=== PATIENT | male | born 1955 | race Caucasian/White ===

== ENCOUNTER 2019-07-18 13:44 | Inpatient (IN) | payer OTHER ==
[~2019-07-18] VITALS: Ht 165.1 cm; Wt 86.5 kg
[2019-07-18] MEDS ORDERED: ONDANSETRON HCL 4 MG/2 ML VIAL IV ONE (14:00)
[2019-07-18] MEDS ORDERED: ASPirin 325 MG TAB PO ONE (14:00)
[2019-07-18] MEDS ORDERED: MORPHINE SULFATE 4 MG/ML SYR/VIAL IV ONE (14:00)
[2019-07-18] MEDS ORDERED: HEPARIN SODIUM (PORCINE) 5000 UNITS/ML 1ML VIAL IV ONE ×2 (14:00)
[2019-07-18 14:03] LABS: Basophils # (auto) 0.1 uL; Basophils % (auto) 0.5 % (0.0-2.0); Eosinophils # (auto) 0.1 uL; Eosinophils % (auto) 0.6 % (0.0-7.0); Hematocrit 48.5 % (41.0-53.0); Hemoglobin 16.3 g/dL (13.5-17.5); Lymphocytes # (auto) 1.8 uL; Mean Corpuscular Hemoglobin 32.4 pg (28.0-32.0); Mean Corpuscular Hgb Conc. 33.7 g/dL (32.0-36.0); Mean Corpuscular Volume 96.2 fL (80.0-100.0); Monocytes # (auto) 0.9 uL; Monocytes % (auto) 5.8 % (0.0-12.0); Neutrophils # (auto) 13.1 uL; Neutrophils % (auto) 82.1 % (37.0-80.0); Platelet Count (auto) 245 10^3/uL (140-450); Red Blood Cells 5.04 10^6/uL (4.5-5.90); Red Cell Distribution Width 13.5 % (11.8-14.3)
[2019-07-18] MEDS: SODIUM CHLOR 0.9% PF (SALINE LOCK) 10ML VIAL/SYR IV SCH ×2 (14:04→21:12)
[2019-07-18] MEDS ORDERED: ATROPINE SULFATE 0.4 MG/1 ML VIAL ONE (14:12)
[2019-07-18] MEDS ORDERED: ANGIOMAX 250 MG VIAL IV ONE (14:12)
[2019-07-18] MEDS ORDERED: EPINEPHrine HCL 1 MG/1 ML AMP ONE (14:12)
[2019-07-18] MEDS ORDERED: fentaNYL CITRATE 100 MCG/2 ML VL ONE (14:13)
[2019-07-18] MEDS ORDERED: NOREPINEPHRINE 8 MG/250ML KIT 0 ML IV ONE (14:13)
[2019-07-18] MEDS ORDERED: IODIXANOL 320MG/ML 100ML BTL IV ONE (14:13)
[2019-07-18] MEDS ORDERED: NITROGLYCERIN 50MG/250ML 0 ML IV ONE (14:13)
[2019-07-18] MEDS ORDERED: LIDOCAINE 2%HCL (LOCAL ANESTH.) INJ 20ML MDV ONE (14:13)
[2019-07-18] MEDS ORDERED: SODIUM CHL 0.9% 50 ML ONE (14:13)
[2019-07-18] MEDS ORDERED: MIDAZOLAM HCL 1MG/1ML-2 ML VIAL ONE (14:13)
[2019-07-18] MEDS ORDERED: VERAPAMIL 2.5MG/ML INJ 2ML VIAL IV ONE (14:14)
[2019-07-18] MEDS ORDERED: NTG 0.1MG/HR TOPICAL PATCH TD ONE (14:15)
[2019-07-18 14:21] LABS: Partial Thromboplastin Time 25.1 sec (23.64-32.05)
[2019-07-18 14:24] LABS: Anion Gap 6 (5-15); Blood Urea Nitrogen 14 mg/dL (7-18); Calcium 8.9 mg/dL (8.5-10.1); Carbon Dioxide 25 mmol/L (21-32); Chloride 112 mmol/L (98-107); Glucose 136 mg/dL (74-106); Potassium 3.6 mmol/L (3.5-5.1); Sodium 143 mmol/L (136-145)
[2019-07-18 14:31] LABS: Alanine Aminotransferase 41 U/L (16-61); Alkaline Phosphatase 90 U/L (45-117); Aspartate Aminotransferase 30 U/L (15-37); BUN/Creatinine Ratio 14.3; Bilirubin, Total 0.3 mg/dL (0.2-1.0); GFR African American 100 mL/min; GFR Non-African American 82 mL/min; Total Protein 7.9 g/dL (6.4-8.2)
[2019-07-18] MEDS ORDERED: TICAGRELOR 90 MG TAB ONE (15:06)
[2019-07-18] MEDS ORDERED: MORPHINE SULF INJ 2 MG/ML SYRINGE 1ML IV PRN (15:30)
[2019-07-18] MEDS ORDERED: NITROGLYCERIN 0.4 MG SL TAB SL PRN (15:30)
[2019-07-18 16:15] VITALS: BP 140/85
--- NOTE | 2019-07-18 16:15 | NUR ---
Patient in room 264 from [facility] [employer]. Patient on the monitor. Patient A&Ox4. Patient on 2L NC saturation 98%. IV left and right AC 18G both saline locked, patent, clean, dry, and intact. Patient denies any chest pain at this time. Left wrist Vasc band inflated, will remove per protocol. No Bleeding noted from the site. Bed locked and in the lowest position, side rails up x2, call light with in reach. Will continue to monitor.
[2019-07-18] MEDS ORDERED: FENO1TAB42 PO (18:01)
[2019-07-18] MEDS ORDERED: VENL37.588 PO (18:02)
[2019-07-18] MEDS ORDERED: TAMS0.4C36 PO (18:03)
[2019-07-18] MEDS ORDERED: LOSA-39 PO (18:08)
[2019-07-18] MEDS ORDERED: AMLO5TAB15 PO (18:08)
[2019-07-18] MEDS ORDERED: LOVA20TA4 PO (18:08)
[2019-07-18] MEDS ORDERED: TRAM50TA2 PO (18:08)
[2019-07-18] MEDS: LOSARTAN POTASSIUM 50 MG TAB PO SCH (18:15)
--- NOTE | 2019-07-18 18:30 | NUR ---
End of shift note: Patient sitting up in bed eating dinner independently. Patient on the monitor. Patient A&Ox4. Patient on 2L NC saturation 99%. IV left and right AC 18G both saline locked, patent, clean, dry, and intact. No S/S of pain/SOB or distress at this time. Vasc band has been removed. Left wrist insertion site dressing clean, dry, and intact no signs of bleeding at this time. Bed locked and in the lowest position, side rails up x2, call light with in reach. Report to be given to material handler 1st shift RN. Will continue to monitor.
[2019-07-18 20:00] VITALS: BP 129/78
--- NOTE | 2019-07-18 20:00 | NUR ---
SHIFT OPENING NOTE RECEIVED PATIENT AWAKE, ALERT AND ORIENTED X4. NO SOB, DISTRESS OR PAIN NOTED. ON 2L N/C. LEFT WRIST DRESSING IS CLEAN, DRY AND INTACT. STRONG PULES, NO HEMATOMA OR ECCHYMOSIS NOTED. PHYSICAL ASSESSMENT COMPLETED, SEE INTERVENTIONS. INSTRUCTED ON POC AND TO CALL FOR ASSIST NEEDED. BED IS IN THE LOWEST POSITION WITH SIDE RAILS UP X2, CALL LIGHT IS WITHIN REACH.
[2019-07-18] MEDS: ATORVASTATIN 20 MG TAB PO SCH (21:12)
[2019-07-18] MEDS: METOPROLOL TARTRATE 50 MG TAB PO SCH (21:13)
[2019-07-19] VITALS (7 sets, daily range): BP systolic 118–150; BP diastolic 66–93
[2019-07-19] MEDS ORDERED: CLOPIDOGREL 300 MG TAB PO ONE (02:00)
[2019-07-19] MEDS: SODIUM CHLOR 0.9% PF (SALINE LOCK) 10ML VIAL/SYR IV SCH ×3 (05:07→22:00)
--- NOTE | 2019-07-19 07:00 | NUR ---
END OF SHIFT REPORT GIVEN AND CARE ENDORSED TO AMELIA SMITH
--- NOTE | 2019-07-19 08:00 | NUR ---
Opening shift note: Assumed care of Patient. Patient on the monitor. Patient A&Ox4. Patient on 2L NC saturation 98%. IV left and right AC 18G both saline locked, patent, clean, dry, and intact. No S/S of pain/SOB or distress at this time. Left wrist insertion site dressing clean, dry, and intact no signs of bleeding at this time. Bed locked and in the lowest position, side rails up x2, call light with in reach. Instructed on POC and to call for assist. Will continue to monitor.
--- NOTE | 2019-07-19 08:30 | NUR ---
Patient sitting up in bed eating breakfast independently. Will continue to monitor.
--- NOTE | 2019-07-19 10:00 | NUR ---
Medication dosages, usages, and side effects explained to patient. Patient verbalized understanding. Will continue to monitor.
[2019-07-19] MEDS: ASPirin 81 mg TAB PO SCH (10:17)
[2019-07-19] MEDS: LOSARTAN POTASSIUM 50 MG TAB PO SCH (10:18)
[2019-07-19] MEDS: METOPROLOL TARTRATE 50 MG TAB PO SCH ×2 (10:18→22:01)
[2019-07-19 11:13] LABS: Basophils # (auto) 0.1 uL; Eosinophils # (auto) 0.1 uL; Eosinophils % (auto) 0.5 % (0.0-7.0); Hematocrit 42.2 % (41.0-53.0); Hemoglobin 14.5 g/dL (13.5-17.5); Lymphocytes # (auto) 1.6 uL; Lymphocytes % (auto) 14.6 % (10.0-50.0); Mean Corpuscular Hemoglobin 32.9 pg (28.0-32.0); Mean Corpuscular Hgb Conc. 34.3 g/dL (32.0-36.0); Monocytes # (auto) 0.9 uL; Monocytes % (auto) 8.5 % (0.0-12.0); Neutrophils % (auto) 75.4 % (37.0-80.0); Platelet Count (auto) 242 10^3/uL (140-450); White Blood Cell 10.6 10^3/uL (4.4-10.8)
[2019-07-19 11:30] LABS: BUN/Creatinine Ratio 17.5; Calcium 8.5 mg/dL (8.5-10.1); Potassium 3.8 mmol/L (3.5-5.1)
--- NOTE | 2019-07-19 12:30 | NUR ---
Patient sitting up in bed eating lunch independently. Will continue to monitor.
--- NOTE | 2019-07-19 14:45 | NUR ---
Report given to Floridalma SMITH. Patient going to room 280B on tele box 74.
--- NOTE | 2019-07-19 15:03 | NUR ---
Opening Note] Pt ambulated onto unit. Pt is a/ox4 with no s/s of distress or SOB. Pt has no complaints at this time. Discussed POC with pt; pt verbalized understanding. Safety measures maintained with call light within reach, bed in lowest position and call light within reach. Will continue to monitor for changes q1hr and prn. VS upon admission 135/89, HR 78, RR 15, 94% on RA
--- NOTE | 2019-07-19 17:14 | NUR ---
Pt C/O Generalized Pain Pt is requesting something for pain; pt states he has generalized ache in his legs. Pt does not currently have any pain medication PRN; [facility] hospitalist for orders. Addendum: 07/19/19 at 1749 by IVANA ALBERTS RN RN Dr Gauri juarez, Tylonol 500 mg PO Q6 PRN
[2019-07-19] MEDS ORDERED: ACETAMINOPHEN 500 MG TAB PO PRN (18:00)
--- NOTE | 2019-07-19 19:16 | NUR ---
Opening Shift Note Assumed care of patient, awake and alert. No S/S of distress/SOB or pain. Instructed on POC and to call for assist PRN, will continue to monitor for changes Q1hr and PRN. Side rails up x2. Bed locked in lowest position. Call light within reach.
[2019-07-19] MEDS: ATORVASTATIN 20 MG TAB PO SCH (22:00)
[2019-07-19] MEDS ORDERED: FAMOTIDINE 20 MG TAB PO ONE (22:45)
--- NOTE | 2019-07-20 02:18 | NUR ---
Rounds Patient in bed asleep with no signs of distress/sob/pain. Will continue to monitor Q1HPRN.
[2019-07-20 05:48] VITALS: BP 156/93
[2019-07-20 06:08] LABS: Basophils # (auto) 0.1 uL; Basophils % (auto) 0.6 % (0.0-2.0); Eosinophils # (auto) 0.2 uL; Eosinophils % (auto) 1.8 % (0.0-7.0); Hematocrit 44.7 % (41.0-53.0); Lymphocytes # (auto) 1.7 uL; Lymphocytes % (auto) 17.8 % (10.0-50.0); Mean Corpuscular Hemoglobin 32.8 pg (28.0-32.0); Mean Corpuscular Hgb Conc. 33.6 g/dL (32.0-36.0); Mean Corpuscular Volume 97.9 fL (80.0-100.0); Monocytes # (auto) 0.9 uL; Monocytes % (auto) 9.2 % (0.0-12.0); Neutrophils # (auto) 6.7 uL; Neutrophils % (auto) 70.6 % (37.0-80.0); Platelet Count (auto) 237 10^3/uL (140-450); Red Blood Cells 4.57 10^6/uL (4.5-5.90); Red Cell Distribution Width 13.9 % (11.8-14.3); White Blood Cell 9.5 10^3/uL (4.4-10.8)
[2019-07-20] MEDS: SODIUM CHLOR 0.9% PF (SALINE LOCK) 10ML VIAL/SYR IV SCH (06:13)
[2019-07-20 06:49] LABS: BUN/Creatinine Ratio 16.7; Calcium 8.2 mg/dL (8.5-10.1); Potassium 3.7 mmol/L (3.5-5.1)
--- NOTE | 2019-07-20 06:54 | NUR ---
Received critical troponin from lab at 36.600 Patient is status post left heart cath.
--- NOTE | 2019-07-20 07:49 | NUR ---
Endorsed care to day shift RN.
[2019-07-20 09:00] VITALS: BP 125/90
[2019-07-20] MEDS ORDERED: ASPirin 81 mg TAB PO SCH (10:00)
[2019-07-20] MEDS ORDERED: CLOPIDOGREL BISULFATE 75 MG TAB PO SCH (10:00)
[2019-07-20] MEDS: ASPirin 81 mg TAB PO SCH (10:13)
[2019-07-20] MEDS: LOSARTAN POTASSIUM 50 MG TAB PO SCH (10:13)
[2019-07-20] MEDS: METOPROLOL TARTRATE 50 MG TAB PO SCH (10:13)
[2019-07-20 13:00] VITALS: BP 124/81
[2019-07-20 13:10] VITALS: BP 124/81
--- NOTE | 2019-07-20 14:32 | NUR ---
DISCHARGE INSTRUCTIONS PROVIDED TO PT AND . BOTH VERBALIZED UNDERSTANDING FOR PRESCRIPTION ORDER AND CONTINUATION OF HOME MEDICATIONS, FOLLOW UP APPOINTMENT WITH PRIMARY CARE PROVIDER, PT HAS APPOINTMENT TODAY WITH PCP. TELE BOX REMOVED AND RETURNED TO TELE DEPT. IV CATHETER DC'D CATHETER INTACT, NO PHLEBITIS. TWO CATHETERS #18. PT SAFELY ESCORTED OUT OF UNIT, ACCOMPANIED BY .
[2019-07-20] MEDS ORDERED: FAMOTIDINE 20 MG TAB PO SCH (22:00)
== END 2019-07-20 14:25 | disposition home or self-care (01) | DRG 247 ==
LOC: ER 13:44 → EDBD 13:44 → CATH 13:45 → DOU IN ICU 13:46 → TELE-WESTW 07-19 15:08
PROVIDERS: ADMIT Internal Medicine; ATTEND Internal Medicine
PROC: 027034Z Dilation of Coronary Artery, One Artery with Drug-eluting Intraluminal Device, Percutaneous Approach (ICD-10-PCS; principal; 2019-07-18)
PROC: 4A023N7 Measurement of Cardiac Sampling and Pressure, Left Heart, Percutaneous Approach (ICD-10-PCS; 2019-07-18)
PROC: B211YZZ Fluoroscopy of Multiple Coronary Arteries using Other Contrast (ICD-10-PCS; 2019-07-18)
PROC: B215YZZ Fluoroscopy of Left Heart using Other Contrast (ICD-10-PCS; 2019-07-18)
DX: I21.09 ST elevation (STEMI) myocardial infarction involving other coronary artery of anterior wall (principal); E78.00 Pure hypercholesterolemia, unspecified; F41.9 Anxiety disorder, unspecified; I10 Essential (primary) hypertension; E66.9 Obesity, unspecified; Z68.31 Body mass index [BMI] 31.0-31.9, adult; E78.5 Hyperlipidemia, unspecified; F17.290 Nicotine dependence, other tobacco product, uncomplicated; I11.9 Hypertensive heart disease without heart failure; Z79.02 Long term (current) use of antithrombotics/antiplatelets; Z79.82 Long term (current) use of aspirin; Z79.899 Other long term (current) drug therapy
CPT/HCPCS: 36415; 71045; 80048; 80053; 83735; 84443; 84484; 85025; 85610; 85730; 93005; 93306; 94761; G0378; J0171; J0461; J2250; J2405; Q9967